=== PATIENT | female | born 1985 | race Caucasian/White ===

== ENCOUNTER → 2016-08-10 | Outpatient (CLI) | payer OTHER | LOC: MW.CHFP 16:39 | PROVIDERS: ATTEND Physician Assistant | DX: R50.9 Fever, unspecified (principal); R68.89 Other general symptoms and signs | CPT/HCPCS: 36415; 85025; 87804 ==

== ENCOUNTER → 2016-09-04 | Outpatient (CLI) | payer OTHER ==
[2016-09-04 08:50] LABS: CHLORIDE,CL 104 mmol/L (98-110); SODIUM,NA 136 mmol/L (136-146)
== END ==
LOC: MW.CHFP 08:06
PROVIDERS: ATTEND Student in an Organized Health Care Education/Training Program
DX: E11.9 Type 2 diabetes mellitus without complications (principal)
CPT/HCPCS: 36415; 80053; 80061; 82044; 83036

== ENCOUNTER → 2016-10-09 | Outpatient (CLI) | payer OTHER | LOC: MW.CHOBGYN 09:43 | PROVIDERS: ATTEND Nurse Practitioner Women's Health | DX: R39.9 Unspecified symptoms and signs involving the genitourinary system (principal) | CPT/HCPCS: 81001 ==

== ENCOUNTER 2021-06-13 23:22 | Emergency (ER) | payer BC, OTHER ==
[2021-06-14] MEDS ORDERED: Ketorolac 30 MG/ML SDV IM ONE (03:53)
--- NOTE | 2021-06-14 03:53 | EDM.PDOC ---
ED HPI GENERAL MEDICAL PROBLEM - General Chief Complaint: ENT Problem Stated Complaint: POSSIBLE STREP THROAT Time Seen by Provider: 06/14/21 03:21 - History of Present Illness INITIAL COMMENTS - FREE TEXT/NARRATIVE: CHIEF COMPLAINT(S): Sore throat HISTORY OF PRESENT ILLNESS: This is a 36-year-old woman with a past medical history of prior epilepsy who comes to the emergency department with a chief complaint of sore throat. Patient states that she presents to the emergency department sore throat. She states that this been going on for approximately 1 day. She denies any trouble swallowing, drooling or inability to open her mouth. She denies any dental pain. She denies any rash or shortness of breath but states that she does have some chills and some body aches. She denies any cough. She denies any fever. She has not yet tried anything. She denies any other symptoms. REVIEW OF SYSTEMS: Constitutional: Positive for chills. Denies fever Eyes: Denies eye pain Ears, Nose, Mouth, & Throat: Positive for sore throat. Denies earache, runny nose Cardiovascular: Denies chest pain Respiratory: Denies shortness of breath Gastrointestinal: Denies Nausea, vomiting, diarrhea, hematochezia. Genitourinary: Denies hematuria Skin:Denies a rash MSK: Positive for body aches. Neurological: Denies blurred vision Psychiatric: Denies depression PAST MEDICAL HISTORY: As per history of present illness and as reviewed below otherwise noncontributory. SURGICAL HISTORY: As per history of present illness and as reviewed below otherwise noncontributory. SOCIAL HISTORY: As per history of present illness and as reviewed below otherwise noncontributory. FAMILY HISTORY: As per history of present illness and as reviewed below otherwise noncontributory. EXAMINATION OF ORGAN SYSTEMS/BODY AREAS: Constitutional: Blood pressure is 122/59, heart rate 97, respiratory rate 20 with an oxygen saturation 99% on room air. Temperature 37.4 General: Well-appearing woman who is in no acute distress Psychiatric: Appropriate mood and affect. Eyes: No scleral icterus or conjunctival erythema ENMT: Moist mucous membranes. No pharyngeal erythema no tonsillar exudates or swelling. Bilateral tympanic membranes without any bulging or erythema. No stridor, drooling, trismus. Cardiovascular: Regular, rate, and rhythm. No gallops, murmurs, or rubs. Bilateral upper extremity pulses symmetric and intact. No peripheral edema. No JVD. Respiratory: Lungs clear to auscultation bilaterally. No wheezes, rales, or rhonchi. Gastrointestinal: Soft, non-tender, non-distended. Normoactive bowel sounds Genitourinary: No suprapubic tenderness Musculoskeletal: Normal range of motion. Skin: No lesions or abrasions. Neurological: Alert, GCS 15 MEDICAL DECISION MAKING AND COURSE IN THE ED WITH INTERPRETATION/REVIEW OF DIAG NOSTIC STUDIES: This is a 36-year-old woman without any significant past medical history other than epilepsy when she was younger who comes to the emergency department with sore throat, chills and body aches who overall appears well. At this time we'll provide the patient with Toradol for pain relief and obtain strep swab and Covid and flu swabs. Patient was amenable to this plan. Laboratory: Strep is negative. COVID and influenza are negative. After labs I did discuss results with the patient. At this time I did discuss symptomatic treatment at home. I discussed that I provide her with a prescription for Decadron if she would like to take it for the sore throat. I discussed strict return precautions with the patient. She was amenable to discharge and had no further questions DISPOSITION: The patient was discharged home in stable condition. The patient will follow up with primary care physician in 3 to 5 days CONDITION: Fair PROCEDURES: None FINAL IMPRESSION(S)/DIAGNOSES: 1. Acute viral pharyngitis Markus Torres M.D. Throat Pain Score (Numeric/FACES): 6 - Related Data Allergies Allergy/AdvReac Type Severity Reaction Status Date / Time No Known Allergies Allergy Verified 06/14/21 01:23 Home Meds: Home Meds Zonisamide 1 cap PO BID 01/24/15 [History] Insulin Aspart [NovoLOG] 45 unit SUBCUT TIDMEALS 02/14/16 [History] Insulin Glargine,Hum.Rec.Anlog [Lantus Solostar] 50 unit SUBCUT BEDTIME 02/14/16 [History] Vit Calc,Iron,Folic [ Vitamins] 1 tab PO DAILY 02/14/16 [History] dexAMETHasone [Dexamethasone] 8 mg PO ONETIME #2 tab 06/14/21 [Rx] Past Medical History Other HEENT History: wears glasses/contacts Cardiovascular History: Reports: None Respiratory History: Reports: None Gastrointestinal History: Reports: GERD Other Gastrointestinal History: during Genitourinary History: Reports: None SKIN DRIER History: Reports: Other SKIN DRIER History: Current missed , hx: mild cervical dysplasia Musculoskeletal History: Reports: None Neurological History: Reports: Seizure Other Neuro History: History denies any known seizures in past year Psychiatric History: Reports: None Endocrine/Metabolic History: Reports: Diabetes, Type II, Obesity/BMI 30+ Hematologic History: Reports: Blood Transfusion(s) Other Hematologic History: Blood transfusion post delivery 1 time Oncologic (Cancer) History: Reports: None Dermatologic History: Reports: None - Past Surgical History Head Surgeries/Procedures: Reports: None HEENT Surgical History: Reports: None Other HEENT Surgeries/Procedures: [place] teeth extracted Cardiovascular Surgical History: Reports: None Respiratory Surgical History: Reports: None GI Surgical History: Reports: None Female Surgical History: Reports: Section Other Female Surgeries/Procedures: 3 prior deliveries, Colposcopy 03/2006 Endocrine Surgical History: Reports: None Neurological Surgical History: Reports: None Musculoskeletal Surgical History: Reports: None Oncologic Surgical History: Reports: None Social & Family History - Family History OBGYN: Reports: Neurological: Reports: MS Oncologic: Reports: Breast - Tobacco Use Second Hand Smoke Exposure: No - Caffeine Use Caffeine Use: Reports: None - Recreational Drug Use Recreational Drug Use: No ED ROS GENERAL - Review of Systems Review Of Systems: See Below ED EXAM, GENERAL - Physical Exam Exam: See Below Course - Vital Signs Last Recorded V/S: Last Vital Signs Temp 37.4 C 06/14/21 01:21 Pulse 84 06/14/21 04:05 Resp 16 06/14/21 04:05 BP 132/74 06/14/21 04:05 Pulse Ox 97 06/14/21 04:05 - Orders/Labs/Meds Labs: Laboratory Tests 06/14/21 06/14/21 Range/Units 01:20 03:36 Influenza Type A RNA NEGATIVE (NEGATIVE) Influenza Type B RNA NEGATIVE (NEGATIVE) SARS-CoV-2 RNA (BRYCE) NEGATIVE (NEGATIVE) Group A Strep (PCR) NOT DETECTED (NOT DETECT) Meds: Medications Discontinued Medications Generic Name Dose Route Start Last Admin Trade Name Freq PRN Reason Stop Dose Admin Ketorolac Tromethamine 30 mg 06/14/21 03:53 06/14/21 03:59 Ketorolac 30 Mg/Ml Sdv IM 06/14/21 03:54 30 mg ONETIME ONE Administration Departure - Departure Time of Disposition: 03:53 Disposition: Home, Self-Care 01 Condition: Fair Clinical Impression: Viral URI - Discharge Information *PRESCRIPTION DRUG MONITORING PROGRAM REVIEWED*: No *COPY OF PRESCRIPTION DRUG MONITORING REPORT IN PATIENT MICHAELA: No Prescriptions: dexAMETHasone [Dexamethasone] 8 mg PO ONETIME #2 tab Instructions: Upper Respiratory Infection, Adult, [id number] Referrals: Nakul Baldwin MD [Primary Care Provider] - Forms: ED Department Discharge Additional Instructions: You were evaluated today on an emergent basis. At this time your group a strep was negative. Given that we did send off a Covid influenza screen. Your vital signs are all within normal limits so at this time we will contact you if any of those are positive. I recommend the use of Tylenol and Motrin for pain and fever. It is important that you keep hydrated. If you have any worsening symptoms such as worsening shortness of breath or development of chest pain I would like you to return to the emergency department. Follow-up with your primary care physician [facility] [address] [place] [address] [id number] The patient is informed of any results of their evaluation and diagnostic workup and all questions are answered. They are given discharge instructions and return precautions. The patient is stable for discharge. The patient states they understand and agree with the plan and that they will return if their symptoms get worse or if they have any new concerns. The following information is given to patients seen in the emergency department who are being discharged to home. This information is to outline your options for follow-up care. We provide all patients seen in our emergency department with a follow-up referral. The need for follow-up, as well as the timing and circumstances, are variable depending upon the specifics of your emergency department visit. If you don't have a primary care physician on staff, we will provide you with a referral. We always advise you to contact your personal physician following an emergency department visit to inform them of the circumstance of the visit and for follow-up with them and/or the need for any referrals to a consulting specialist. The emergency department will also refer you to a specialist when appropriate. This referral assures that you have the opportunity for follow-up care with a specialist. All of these measure are taken in an effort to provide you with optimal care, which includes your follow-up. Under all circumstances we always encourage you to contact your private physician who remains a resource for coordinating your care. When calling for follow-up care, please make the office aware that this follow-up is from your recent emergency room visit. If for any reason you are refused follow-up, please contact the [facility] Emergency Department at and asked to speak to the emergency department charge nurse. Sepsis Event Note (ED) - Evaluation Sepsis Screening Result: No Definite Risk
[2021-06-14 04:06] VITALS: BP 132/74; PULSE 84
[2021-06-14 04:17] LABS: CORONAVIRUS COVID-19 NAA NEGATIVE (NEGATIVE); INFLUENZA A NAA NEGATIVE (NEGATIVE); INFLUENZA B NAA NEGATIVE (NEGATIVE)
== END 2021-06-14 04:02 | disposition home or self-care (01) ==
LOC: MW.ED 23:22
DX: J02.8 Acute pharyngitis due to other specified organisms (principal); E11.9 Type 2 diabetes mellitus without complications; E66.9 Obesity, unspecified; Z68.29 Body mass index [BMI] 29.0-29.9, adult; Z79.4 Long term (current) use of insulin; Z20.822 Contact with and (suspected) exposure to COVID-19
CPT/HCPCS: 0240U; 87651; 96372; 99283; J1885